=== PATIENT | female | born 1950 | race Caucasian/White ===

== ENCOUNTER → 2019-08-25 13:17 | Outpatient (CLI) | payer OTHER, SELFPAY ==
--- NOTE | ~2019-08-25 | XR_ITS ---
EXAMINATION: XR chest 2V DATE: 08/25/2019 13:42 INDICATION: Tobacco smoker. TECHNIQUE: frontal and lateral views of the chest were obtained. COMPARISON: Chest radiograph dated 12/15/2016 FINDINGS: An acute interstitial lung the anterior right hemidiaphragm. Lungs remain clear with no focal airspac e opacities, pulmonary edema, pleural effusion or pneumothorax. The cardiomediastinal silhouette is n ormal. Moderate thoracic spondylosis. IMPRESSION: 1. No acute cardiopulmonary disease. Reviewed, dictated and finalized at location A. ERY LEADPERSON
== END ==
PROVIDERS: PCP Family Medicine; Visit Provider Family Medicine
DX: Z72.0 Tobacco use (principal)
CPT/HCPCS: 71046

== ENCOUNTER 2020-03-02 16:48 | Outpatient (CLI) | payer OTHER, SELFPAY ==
--- NOTE | ~2020-03-02 | MM_ITS ---
EXAMINATION: MM screening [facility] w abdoul HISTORY: Screening TECHNIQUE: Craniocaudal and mediolateral oblique 3-D tomosynthesis images were obtained and synthetic 2-D images were generated. CAD analysis was submitted and interpreted. COMPARISON: Comparison to multiple prior studies sequentially, with oldest reviewed study dated 01/10. BREAST PARENCHYMAL COMPOSITION: There are scattered areas of fibroglandular density. FINDINGS: There is no evidence of suspicious mass, calcification, or architectural distortion to sugg est malignancy in either breast. There has been no suspicious interval change. IMPRESSION: 1. No mammographic evidence of malignancy. 2. Recommend routine screening mammography in one year. BI-RADS Category 1: Negative Reviewed, dictated and finalized at location A.
== END 2020-03-02 16:49 | disposition home or self-care (01) ==
LOC: ANHIMG 16:52
PROVIDERS: PCP Family Medicine; Visit Provider Family Medicine
DX: Z12.31 Encounter for screening mammogram for malignant neoplasm of breast (principal)
CPT/HCPCS: 77063; 77067

== ENCOUNTER 2021-03-04 08:58 | Outpatient (CLI) | payer OTHER, SELFPAY ==
--- NOTE | ~2021-03-04 | MM_ITS ---
EXAMINATION: MM screening [facility] w abdoul HISTORY: Screening TECHNIQUE: Craniocaudal and mediolateral oblique 3-D tomosynthesis images were obtained and synthetic 2-D images were generated. CAD analysis was submitted and interpreted. COMPARISON: Comparison to multiple prior studies sequentially, with oldest reviewed study dated 01/10. BREAST PARENCHYMAL COMPOSITION: There are scattered areas of fibroglandular density. FINDINGS: There is no evidence of suspicious mass, calcification, or architectural distortion to sugg est malignancy in either breast. There has been no suspicious interval change. IMPRESSION: 1. No mammographic evidence of malignancy. 2. Recommend routine screening mammography in one year. BI-RADS Category 1: Negative Reviewed, dictated and finalized at location A.
== END 2021-03-04 08:59 | disposition home or self-care (01) ==
LOC: ANHIMG 09:01
PROVIDERS: PCP Family Medicine; Visit Provider Family Medicine
DX: Z12.31 Encounter for screening mammogram for malignant neoplasm of breast (principal)
CPT/HCPCS: 77063; 77067

== ENCOUNTER 2022-04-25 10:29 | Outpatient (CLI) | payer OTHER, SELFPAY ==
--- NOTE | ~2022-04-25 | MM_ITS ---
EXAMINATION: MM screening [facility] BI w abdoul HISTORY: Screening mammogram TECHNIQUE: Craniocaudal and mediolateral oblique 3-D tomosynthesis images were obtained and synthetic 2-D images were generated. CAD analysis was submitted and interpreted. COMPARISON: 03/21/2021, 03/02/2020, 01/20/2019, 01/15/2018 BREAST PARENCHYMAL COMPOSITION: There are scattered areas of fibroglandular density. FINDINGS: No suspicious mass, calcification, or architectural distortion are identified in either staci ast to suggest malignancy. There has been no suspicious interval change. IMPRESSION: 1. No mammographic evidence of malignancy. 2. Recommend routine screening mammography in one year. BI-RADS Category 1: Negative Reviewed, dictated and finalized at location A.
== END 2022-04-25 10:30 | disposition home or self-care (01) ==
LOC: ANHIMG 10:29
PROVIDERS: PCP Family Medicine; Visit Provider Family Medicine
DX: Z12.31 Encounter for screening mammogram for malignant neoplasm of breast (principal)
CPT/HCPCS: 77063; 77067

== ENCOUNTER 2023-04-26 16:36 | Outpatient (CLI) | payer OTHER, SELFPAY ==
--- NOTE | ~2023-04-26 | MM_ITS ---
EXAMINATION: MM screening [facility] w abdoul HISTORY: Screening mammogram TECHNIQUE: Craniocaudal and mediolateral oblique 3-D tomosynthesis images were obtained and synthetic 2-D images were generated. CAD analysis was submitted and interpreted. COMPARISON: 04/25/2022, 03/04/2021, 03/02/2020 right lateral screening mammogram examinations BREAST PARENCHYMAL COMPOSITION: There are scattered areas of fibroglandular density. FINDINGS: There is no evidence of suspicious mass, calcification, or architectural distortion to sugg est malignancy in either breast. There has been no suspicious interval change. IMPRESSION: 1. No mammographic evidence of malignancy. 2. Recommend routine screening mammography in one year. BI-RADS Category 1: Negative Reviewed, dictated and finalized at location A.
== END 2023-04-26 16:37 | disposition home or self-care (01) ==
LOC: ANHIMG 16:37
PROVIDERS: PCP Family Medicine; Visit Provider Family Medicine
DX: Z12.31 Encounter for screening mammogram for malignant neoplasm of breast (principal)
CPT/HCPCS: 77063; 77067

== ENCOUNTER 2023-11-14 15:28 | Emergency (ER) | payer OTHER, SELFPAY ==
[2023-11-14 15:48] VITALS: BP 170/77; PULSE 87; RESP 12; TEMP 36.6; O2SAT 99
--- NOTE | 2023-11-14 16:03 | ED.DENTAL ---
HPI - Dental/Oral General Chief complaint: Dental/Oral Stated complaint: left side tooth pain Time Seen by Provider: 11/14/23 15:56 Source: patient, family (Son) and RN notes reviewed Mode of arrival: ambulatory Limitations: no limitations History of Present Illness HPI Narrative: Patient presents today complaining of left lower posterior tooth pain x2 days, worse today. Currently rates her pain 12/10 and took ibuprofen with mild relief. Denies fever, shortness of breath, difficulty swallowing. She has not seen a dentist in over 15 years. Related Data Home Medications Medication Instructions Recorded Confirmed atorvastatin 10 mg tablet 10 mg PO DAILY 11/14/23 11/14/23 lorazepam 1 mg tablet 1 mg PO DAILY 11/14/23 11/14/23 losartan 50 mg tablet 50 mg PO DAILY 11/14/23 11/14/23 Allergies Allergy/AdvReac Type Severity Reaction Status Date / Time ERYTHROMYCINS Allergy Unknown Hives Uncoded 11/14/23 15:40 Azithromycin AdvReac Hives Uncoded 11/14/23 15:57 Review of Systems Review of Systems: CONSTITUTIONAL: Denies body aches, fever, chills, or sweats. EYES: Denies visual changes, redness, or discharge. ENT: Denies rhinorrhea, congestion, sore throat, or otalgia.+ tooth pain CARDIOVASCULAR: Denies chest pain, palpitations, or edema. RESPIRATORY: Denies cough or dyspnea. GASTROINTESTINAL: Denies abdominal pain, nausea, vomiting, or diarrhea. GENITOURINARY: Denies dysuria or hematuria. SKIN: Denies rash, itching, or wounds. MUSCULOSKELETAL: Denies back pain, joint pain, or myalgia. NEUROLOGIC: Denies headache, numbness, tingling, or weakness. PSYCH: Denies depression or anxiety. PMFSH Comments Reviewed Exam Narrative: GENERAL: Well-appearing, well-nourished, and in no acute distress. HEAD: Normocephalic, atraumatic. EYES: EOMI. No redness or drainage. Conjunctivae normal. ENT: Mucous membranes pink and moist. Gross dental decay. Tooth 18. Is broken off at the gumline and is brown in color. No facial swelling noted. No obvious periapical abscess. No trismus. NECK: Normal AROM. CHEST: No respiratory distress. EXTREMITIES: Normal range of motion. No edema. SKIN: Warm, dry, no rash. Capillary refill normal. Normal skin turgor. NEURO: No focal deficits. Alert and oriented x3. Gait steady. PSYCH: Normal affect. No signs of depression or anxiety. Course Course Level of Care: Express Care Visit Vital Signs Vital signs: Vital Signs Temperature 98 F 11/14/23 15:48 Pulse Rate 87 11/14/23 15:48 Respiratory Rate 12 11/14/23 15:48 Blood Pressure 170/77 H 11/14/23 15:48 Pulse Oximetry 99 11/14/23 15:48 Oxygen Delivery Room Air 11/14/23 15:48 Temperature 98 F 11/14/23 15:48 Pulse Rate 87 11/14/23 15:48 Respiratory Rate 12 11/14/23 15:48 Blood Pressure 170/77 H 11/14/23 15:48 Pulse Oximetry 99 11/14/23 15:48 Oxygen Delivery Room Air 11/14/23 15:48 Reviewed MDM - Dental/Oral MDM Narrative Medical decision making narrative: Patient will be started on amoxicillin and has been instructed to follow-up with a dentist for further evaluation. Anticipatory guidance given. Differential Diagnosis Differential diagnosis: Likely gingival abscess, dental caries, toothache, dental abscess and fracture of tooth Critical Care Time Critical Care Time Critical Care Time: No Discharge Plan Discharge Clinical Impression: Dental caries Patient Disposition: Home, Self-Care Condition: Stable Instructions: Antibiotic Form, Dental Abscess (ED) Additional Instructions: Please take the amoxicillin as prescribed until gone. Take Tylenol or ibuprofen for pain. Follow-up with a dentist for further evaluation and treatment. Your blood pressure was elevated above 120/80 today at Urgent Care. This puts you above the threshold for follow up. Please schedule a followup visit with your personal physician as soon as possible, for further evaluation and treatment. Even
== END 2023-11-14 16:15 | disposition home or self-care (01) ==
PROVIDERS: Emergency Provider Nurse Practitioner; PCP Family Medicine
DX: K02.9 Dental caries, unspecified (principal)
CPT/HCPCS: 99213; G0463

== ENCOUNTER 2024-03-01 11:47 | Emergency (ER) | payer OTHER, SELFPAY ==
[2024-03-01 12:00] VITALS: BP 178/94; PULSE 90; RESP 20; TEMP 36.8; O2SAT 98
--- NOTE | 2024-03-01 12:02 | ED.URI ---
HPI - URI/Sore Throat General Chief Complaint: Dental/Oral Stated Complaint: Dental Pain Time Seen by Provider: 03/01/24 12:08 Source: patient, RN notes reviewed and old records reviewed Mode of arrival: ambulatory Limitations: no limitations History of Present Illness HPI Narrative: Patient presents with complaints of left lower tooth pain. She reports that she had an infection surrounding same tooth last October. States that she has not followed up with a dentist because she is frightened of them. She reports that symptoms began yesterday, she was unable to present to urgent care yesterday because she had to take her cat to the drum [place]. She has been using a topical dental agent and Tylenol for her symptoms. Poor relief. Elevated blood pressure was discussed, she states that she took her medications as prescribed this morning. Denies any chest pain, dizziness, shortness of breath. Voices no other concerns at this time. No fever, chills, sweats. Denies any injury or trauma Related Data Home Medications Medication Instructions Recorded Confirmed atorvastatin 10 mg tablet 10 mg PO DAILY 03/01/24 03/01/24 buspirone 5 mg tablet 5 mg PO DAILY 03/01/24 03/01/24 losartan 50 mg tablet 50 mg PO DAILY 03/01/24 03/01/24 Allergies Allergy/AdvReac Type Severity Reaction Status Date / Time ERYTHROMYCINS Allergy Unknown Hives Uncoded 03/01/24 11:50 Azithromycin AdvReac Hives Uncoded 03/01/24 11:50 Review of Systems Review of Systems: All systems reviewed & are unremarkable except as noted in HPI and below Constitutional: Constitutional: Reports no additional constitutional complaints ENT: Reports system reviewed and no additional complaints, except as documented and Reports dental pain Cardiovascular: Cardiovascular: Reports no additional cardiovascular complaints Respiratory: Respiratory: Reports no additional respiratory complaints Gastrointestinal: Gastrointestinal: Reports no additional gastrointestinal complaints PMFSH Comments At the time of my signature, I reviewed and agree with the nursing past medical, surgical, social, and family history. There is no relevant family history pertinent to the patient complaint. Exam Const: General: cooperative, no acute distress, alert and awake Orientation/consciousness: oriented to person, oriented to place and oriented to time HENMT: Head: normal to inspection Teeth and gingiva: abnormal tooth and associated gingiva (Left lower, scant drainage present) Resp: Effort & Inspection: normal respiratory effort and able to speak in complete sentences Auscultation: clear to auscultation bilaterally, no crackles, no rales, no rhonchi and no wheezes Cardio: Palpation: normal PMI Rate: regular rate Rhythm: regular rhythm Heart sounds: S1 normal heart sound present and S2 normal heart sound present Neuro: General: oriented to person, oriented to place and oriented to time Cranial nerves: Yes CN's II-XII intact bilaterally Psych: Appearance: grossly normal Thought process: Normal thought process present Insight: Good insight present (Psych) Judgement: Good judgement present (Psych) Course Course Level of Care: Express Care Visit Vital Signs Vital signs: Vital Signs Temperature 98.2 F 03/01/24 12:00 Pulse Rate 90 03/01/24 12:00 Respiratory Rate 20 03/01/24 12:00 Blood Pressure 178/94 H 03/01/24 12:00 Pulse Oximetry 98 03/01/24 12:00 Oxygen Delivery Room Air 03/01/24 12:00 Temperature 98.2 F 03/01/24 12:00 Pulse Rate 90 03/01/24 12:00 Respiratory Rate 20 03/01/24 12:00 Blood Pressure 178/94 H 03/01/24 12:00 Pulse Oximetry 98 03/01/24 12:00 Oxygen Delivery Room Air 03/01/24 12:00 Reviewed MDM - URI/Sore Throat MDM Narrative Medical decision making narrative: Patient with obvious dental infection, scant amount of drainage. No facial swelling, no neck swelling. Afebrile. Elevated blood pressure is noted and discussed wi
== END 2024-03-01 12:20 | disposition home or self-care (01) ==
PROVIDERS: Emergency Provider Nurse Practitioner Family; PCP Family Medicine
DX: K04.7 Periapical abscess without sinus (principal); E78.00 Pure hypercholesterolemia, unspecified; I10 Essential (primary) hypertension; F41.9 Anxiety disorder, unspecified
CPT/HCPCS: 99213; G0463

== ENCOUNTER 2024-05-09 15:11 | Outpatient (CLI) | payer OTHER, SELFPAY ==
--- NOTE | ~2024-05-09 | MM_ITS ---
EXAMINATION: MM screening [facility] w abdoul HISTORY: Screening TECHNIQUE: Craniocaudal and mediolateral oblique 3-D tomosynthesis images were obtained and synthetic 2-D images were generated. CAD analysis was submitted and interpreted. COMPARISON: Comparison to multiple prior studies sequentially, with oldest reviewed study dated 12/2017. BREAST PARENCHYMAL COMPOSITION: Not dense: There are scattered areas of fibroglandular density. FINDINGS: There is no evidence of suspicious mass, calcification, or architectural distortion to sugg est malignancy in either breast. There has been no suspicious interval change. IMPRESSION: 1. No mammographic evidence of malignancy. 2. Recommend routine screening mammography in one year. BI-RADS Category 1: Negative Reviewed, dictated and finalized at location B. AURANT HOURLY MANAGER
== END 2024-05-09 15:12 | disposition home or self-care (01) ==
LOC: ANHIMG 15:14
PROVIDERS: PCP Family Medicine; Visit Provider Family Medicine
DX: Z12.31 Encounter for screening mammogram for malignant neoplasm of breast (principal)
CPT/HCPCS: 77063; 77067

== ENCOUNTER 2024-06-30 11:11 | Emergency (ER) | payer OTHER, SELFPAY ==
[2024-06-30 11:19] VITALS: BP 188/94; PULSE 95; RESP 16; TEMP 36.1; O2SAT 98
--- NOTE | 2024-06-30 12:17 | ED.URI ---
HPI - URI/Sore Throat General Chief Complaint: Upper Respiratory Infection Stated Complaint: Sinus/Mouth Pain Time Seen by Provider: 06/30/24 12:18 Source: patient, RN notes reviewed and old records reviewed Mode of arrival: ambulatory Limitations: no limitations History of Present Illness HPI Narrative: Patient presents with complaints of 5 days of sinus pain and tenderness. She reports that a couple of weeks before she actually developed pain she did have some nasal drainage and runny nose. She reports now mucous has thickened, she has copious postnasal drainage causing a sore throat. She reports occasional cough. She is more tired than normal. Blood pressure is noted to be elevated. She reports that she forgot to take her medication at the proper time this morning, took it upon arrival here. She denies any dizziness, chest pain, shortness of breath. No visual disturbances Related Data Home Medications ?Medication ?Instructions ?Recorded ?Confirmed ?Last Taken ?Type atorvastatin 10 mg tablet 10 mg PO DAILY 03/01/24 03/01/24 Unknown History buspirone 5 mg tablet 5 mg PO DAILY 03/01/24 03/01/24 Unknown History losartan 50 mg tablet 50 mg PO DAILY 03/01/24 03/01/24 Unknown History lorazepam 1 mg tablet mg 06/30/24 Unknown History Allergies Allergy/AdvReac Type Severity Reaction Status Date / Time ERYTHROMYCINS Allergy Unknown Hives Uncoded 06/30/24 11:30 Azithromycin AdvReac Hives Uncoded 06/30/24 11:30 Review of Systems Review of Systems: All systems reviewed & are unremarkable except as noted in HPI and below Constitutional: Constitutional: Reports no additional constitutional complaints ENT: Reports system reviewed and no additional complaints, except as documented, Reports nasal congestion, Reports nasal discharge, Reports nasal obstruction, Reports sinus pain, Reports sinus pressure and Reports sore throat Cardiovascular: Cardiovascular: Reports no additional cardiovascular complaints Respiratory: Respiratory: Reports no additional respiratory complaints and Reports cough Gastrointestinal: Gastrointestinal: Reports no additional gastrointestinal complaints PMFSH Comments At the time of my signature, I reviewed and agree with the nursing past medical, surgical, social, and family history. There is no relevant family history pertinent to the patient complaint. Exam Const: General: cooperative, no acute distress, alert and awake Orientation/consciousness: oriented to person, oriented to place and oriented to time HENMT: Head: normal to inspection Ears: TM's normal bilaterally Face/Nose/Sinus: sinus tenderness Mouth: Yes moist mucous membranes Throat: posterior oropharynx abnormal erythema Resp: Effort & Inspection: normal respiratory effort and able to speak in complete sentences Auscultation: clear to auscultation bilaterally, no crackles, no rales, no rhonchi and no wheezes Cardio: Palpation: normal PMI Rate: regular rate Rhythm: regular rhythm Heart sounds: S1 normal heart sound present and S2 normal heart sound present Neuro: General: oriented to person, oriented to place and oriented to time Cranial nerves: Yes CN's II-XII intact bilaterally Psych: Appearance: grossly normal Thought process: Normal thought process present Insight: Good insight present (Psych) Judgement: Good judgement present (Psych) Course Course Level of Care: Express Care Visit Vital Signs Vital signs: Vital Signs Temperature 97.0 F L 06/30/24 11:19 Pulse Rate 95 06/30/24 11:19 Respiratory Rate 16 06/30/24 11:19 Blood Pressure 188/94 H 06/30/24 11:19 Pulse Oximetry 98 06/30/24 11:19 Oxygen Delivery Room Air 06/30/24 11:19 Temperature 97.0 F L 06/30/24 11:19 Pulse Rate 95 06/30/24 11:19 Respiratory Rate 16 06/30/24 11:19 Blood Pressure 188/94 H 06/30/24 11:19 Pulse Oximetry 98 06/30/24 11:19 Oxygen Delivery Room Air 06/30/24 11:19 Reviewed MDM - URI/Sore Throat MDM Narrative Medical decision making narrative: History and exam consistent with sinusitis. Patient with right-sided maxillary tenderness. Start Augmentin. Patient counseled to take all medications, including antihypertensives, at correct times. She is advised to follow with primary care provider. Emergency department for new or worse symptoms. Discharge instructions reviewed with patient, as well as provided in writing per nursing staff. The instructions also include specific and strict return/GO TO THE ER as well as f/u information. All questions have been answered, and the patient deny any further questions with discharge and discharge plan. Some parts of this dictation were generated by voice recognition software and may contain typographical and/or grammatical inaccuracies. Differential Diagnosis Differential diagnosis: Likely upper respiratory infection, otitis media, viral infection, influenza and pharyngitis Medical Records Attestation: I reviewed the patient's medical records. Discharge Plan Discharge Clinical Impression: Sinusitis Qualifiers: Sinusitis location: maxillary Chronicity: acute Recurrence: not specified as recurrent Qualified Code(s): J01.00 - Acute maxillary sinusitis, unspecified Patient Disposition: Home, Self-Care Condition: Stable Instructions: Antibiotic Form, Sinusitis (ED) Additional Instructions: Plenty of rest and fluids, take medications as prescribed. Follow-up with primary care provider. Emergency department for new or worse symptoms. Blood pressure is very elevated today. Please be sure you are taking your medications at the appropriate times Patient Language: Bur[place]ian Prescriptions: New amoxicillin-pot clavulanate 875-125 mg tablet 1 tablet PO Q12H Qty: 20 0RF No Action buspirone 5 mg tablet 5 mg PO DAILY losartan 50 mg tablet 50 mg PO DAILY atorvastatin 10 mg tablet 10 mg PO DAILY lorazepam 1 mg tablet Follow-up/Referrals: Nathan,MD Madonna [Primary Care Provider] - 2 Weeks Time of Disposition: 12:28
== END 2024-06-30 12:35 | disposition home or self-care (01) ==
PROVIDERS: Emergency Provider Nurse Practitioner Family; PCP Family Medicine
DX: J01.00 Acute maxillary sinusitis, unspecified (principal); I10 Essential (primary) hypertension; E78.00 Pure hypercholesterolemia, unspecified; J44.9 Chronic obstructive pulmonary disease, unspecified; F41.9 Anxiety disorder, unspecified; F32.A Depression, unspecified
CPT/HCPCS: 99213; G0463

== ENCOUNTER 2025-05-11 14:26 | Outpatient (CLI) | payer OTHER, SELFPAY ==
--- NOTE | ~2025-05-11 | MM_ITS ---
EXAMINATION: MM screening kendal BI w abdoul HISTORY: Screening TECHNIQUE: Craniocaudal and mediolateral oblique 3-D tomosynthesis images were obtained and synthetic 2-D images were generated. CAD analysis was submitted and interpreted. COMPARISON: Comparison to multiple prior studies sequentially, with oldest reviewed study dated 01/20/2019. BREAST PARENCHYMAL COMPOSITION: There are scattered areas of fibroglandular density. FINDINGS: There is no evidence of suspicious mass, calcification, or architectural distortion to suggest malignancy in either breast. There has been no suspicious interval change. IMPRESSION: 1. No mammographic evidence of malignancy. 2. Recommend routine screening mammography in one year. BI-RADS Category 1: Negative Reviewed, dictated and finalized at location [facility]
--- OUTSIDE RECORDS SUMMARY | 2025-05-11 14:30 | XMS_ITS | Clinical Summary ---
Author Organization [address] Address [address] [address] Care Team Providers Care Superannuation Clerk Name Role Phone Guicho Brooks MD Primary Care Provider [phone] Allergies Active Allergy Reactions Criticality Noted Date Comments Cefprozil Rash Medium 07/27/2020 Erythromycin Rash Medium 07/27/2020 Azithromycin Rash Medium 07/27/2020 Medications calcium carbonate/vitamin D3 (CALCIUM 500 + D ORAL) Take by mouth Active cholecalciferol (VITAMIN D-3) 400 unit capsule daily Active ascorbic acid (VITAMIN C) 500 mg tablet,chewable Acti ve vitamin B complex capsule Take 1 capsule by mouth daily Active valsartan-hydrochlorothi azide (DIOVAN-HCT) 320-12.5 mg per tablet Take 1 tablet by mouth daily 90 tablet 1 04/09/20 25 026 Active atorvastatin (LIPITOR) 10 mg tabletIndications:Pure hypercholesterolemia Take 1 tablet (10 mg total) by mouth nightly 90 tablet 1 04/09/20 25 Active LORazepam (ATIVAN) 0.5 mg tablet Take 1 tablet (0.5 mg total) by mouth daily as needed for anxiety 30 tablet 2 04/09/20 25 Active Active Problems Problem Noted Date Diagnosed Date Degenerative disc disease, lumbar 04/09/2025 Assessment & Plan (04/09/2025 11:06 AM CDT): Patient takes Tylenol as needed with good relief. Screening for lung cancer 10/09/2024 Assessment & Plan (04/09/2025 7:16 AM CDT): Lung cancer screening in April 2024 was benign Assessment & Plan (01/08/2025 7:16 AM CDT): Lung cancer screening in April 2024 was benign Assessment & Plan (10/09/2024 11:26 AM CDT): Lung cancer screening in April 2024 was benign Centrilobular emphysema 01/15/2024 Assessment & Plan (04/09/2025 7:16 AM CDT): Asymptomatic and stable without medications Assessment & Plan (01/08/2025 7:15 AM CDT): Asymptomatic and stable without medications Assessment & Plan (10/09/2024 11:24 AM CDT): Asymptomatic and stable without medications Assessment & Plan (01/15/2024 2:05 PM CDT): Chronic, stable Managed by pulmonary- currently off medication Diarrhea 01/15/2024 Assessment & Plan (01/15/2024 2:13 PM CDT): Acute/recurrent Encouraged to keep track of her symptoms, and what is happen around the episodes-? Stress vs food vs other-? IBS-D vs other Will give a handout on FODMAPS Update me if her symptoms change or worsen IFG (impaired fasting glucose) 01/15/2024 Overview (01/15/2024): Chronic, stable Continue healthy diet changes Nonintractable episodic headache 11/28/2023 Assessment & Plan (01/15/2024 2:09 PM CDT): Acute improved Continue to monitor symptoms Update me if they change or worsen Assessment & Plan (11/28/2023 9:43 AM CDT): Acute, new Patient states it is not a headache, but pressure CT scan from July We discussed repeat imaging, declined for now Keep track of her headaches Keep track of her blood pressure. I am concerned given her blood pressure has been under control here that it may be running well at home minus episodes like the dentist She has been under more stress, and we will adjust her medication for depression and anxiety Update me if her symptoms do not improve or worsen Call for questions Primary hypertension 08/01/2023 Assessment & Plan (04/09/2025 7:16 AM CDT): Continue current medications. Discussed low-salt diet. Discussed exercise on regular basis. Will continue to monitor Assessment & Plan (01/08/2025 7:16 AM CDT): Continue current medications. Discussed low-salt diet. Discussed exercise on regular basis. Will continue to monitor Assessment & Plan (10/09/2024 11:25 AM CDT): Blood pressure is high. We will stop losartan. I will start her on valsartan-hydrochlorothiazide 320-12.5 mg daily. Discussed the importance of low-salt diet. Advised to check her blood pressure on regular basis. Will evaluate her again Assessment & Plan (01/15/2024 1:49 PM CDT): Chronic, stable Continue losartan Continue healthy habits for her blood pressure Assessment & Plan (11/28/2023 9:41 AM CDT): Chronic, possible variation but improved I am concerned her elevation at the dentist could have been related to anxiety Will treat anxiety with BuSpar Continue losartan at current dose Follow up in one week for a blood pressure recheck Call for questions or concerns Assessment & Plan (08/01/2023 10:37 AM SUPERVISOR CONTINGENTS): Chronic- improved, but not at goal Will increase losartan to 50 mg Recheck BMP in 2 weeks Nurse visit in 2 weeks Continue to work on DASH diet/healthy changes Continue to work on quitting smoking Update me in 2 weeks Chronic kidney disease, stage 2 (mild) Assessment & Plan (04/09/2025 7:16 AM CDT): Mild chronic kidney disease secondary to hypertension. Discussed the importance of keeping blood pressure under control. Consume at least 64 oz of fluid daily. Avoid NSAIDs Assessment & Plan (01/08/2025 7:15 AM CDT): Mild chronic kidney disease secondary to hypertension. Discussed the importance of keeping blood pressure under control. Consume at least 64 oz of fluid daily. Avoid NSAIDs Assessment & Plan (10/09/2024 11:24 AM CDT): Mild chronic kidney disease secondary to hypertension. Discussed the importance of keeping blood pressure under control. Consume at least 64 oz of fluid daily. Avoid NSAIDs Assessment & Plan (01/15/2024 1:47 PM CDT): Chronic, stable Continue losartan Continue to monitor her renal function Encounter for Medicare annual wellness exam 12/01 Overview (01/15/2024): Encouraged healthy diet and activity Please look into a power of county attorney or living will Health Maintenance: Last mammogram: 04/22- WNL-ordered Last DEXA: 01/21- WN Last Lung Cancer screenin/23 Last colon cancer screening: cologuard 01/20 Negative Last Tdap: 10/2021 Last pneumonia: encouraged Last Shingrix: encouraged Last Flu: encouraged Last COVID: encouraged Assessment & Plan (01/15/2024 1:56 PM CDT): Encouraged healthy diet and activity Please look into a power of county attorney or living will Health Maintenance: Last mammogram: 04/22- WNL-ordered Last DEXA: 01/21- WNL Last Lung Cancer screenin/23 Last colon cancer screening: cologuard 01/20 Negative Last Tdap: 10/2021 Last pneumonia: encouraged Last Shingrix: encouraged Last Flu: encouraged Last COVID: encouraged Assessment & Plan (01/04/2023 2:14 PM CDT): Encouraged healthy diet and activity Please look into a power of county attorney or living will Health Maintenance: Last mammogram: 04/22- WNL Last DEXA: 10/2020- low bone mass-ordered Last Lung Cancer screening: encouraged Last colon cancer screening: cologuard 01/20 Negative Last Tdap: 10/2021 Last pneumonia: encouraged Last Shingrix: encouraged Last Flu: encouraged Last COVID: encouraged Assessment & Plan (12/29/2021 1:52 PM CDT): Encouraged healthy diet and activity Please look into a power of county attorney or living will Health Maintenance: Last mammogram: ordered Last DEXA: 10/2020- low bone mass Last colonoscopy/cologuard: cologuard ordered- check with insurance Last Tdap: 10/2021 Last pneumonia/Prevnar: encouraged Last Shingrix: encouraged Last Flu: encouraged Last COVID: encouraged Assessment & Plan (12/28/2020 1:45 PM CDT): Encouraged healthy diet and activity Please look into a power of county attorney or living will Wear sun screen, seat belts Health Maintenance: Last mammogram: ordered Last DEXA: 10/2020- low bone mass Last colonoscopy/cologuard: cologuard 06/2020 Last Tdap: check with insurance Last pneumonia/Prevnar: encouraged Last Shingrix: encouraged Last Flu: encouraged Last COVID: encouraged Pure hypercholesterolemia 12/28/2020 Assessment & Plan (04/09/2025 7:16 AM CDT): Continue Lipitor and low-fat diet. Assessment & Plan (01/08/2025 7:16 AM CDT): Continue Lipitor and low-fat diet. Assessment & Plan (10/09/2024 11:26 AM CDT): Continue Lipitor and low-fat diet. Assessment & Plan (01/15/2024 1:49 PM CDT): Chronic, stable Continue Lipitor Assessment & Plan (07/17/2023 3:28 PM SUPERVISOR [employer]ING[employer]): Chronic, stable Continue lipitor Assessment & Plan (01/04/2023 2:16 PM CDT): Chronic, stable Continue lipitor Assessment & Plan (12/29/2021 2:06 PM CDT): Will check labs Continue current regimen Assessment & Plan (04/27/2021 4:59 PM CDT): Improved Continue Lipitor Continue to work on healthy lifestyle changes Call for questions or concerns Assessment & Plan (01/25/2021 2:47 PM CDT): CVD score 16.8% We discussed medication- possible side effects Will start lipitor 10 mg nightly Recheck labs in 6-8 weeks Update me with any changes Assessment & Plan (12/28/2020 1:54 PM CDT): CVD score 16.8% Reviewed risk of heart disease, and that she is at a higher risk given her smoking Encouraged to consider treatment Low bone mass 12/28/2020 Assessment & Plan (01/15/2024 2:06 PM CDT): Chronic, improved Continue calcium and vitamin-D Assessment & Plan (01/04/2023 2:16 PM CDT): Chronic Continue calcium, vitamin d Assessment & Plan (12/29/2021 2:02 PM CDT): Continue calcium, vitamin d Assessment & Plan (12/28/2020 1:53 PM CDT): calcium supplementation of 7464-6562 mg daily- over 1500 mg can be detrimental vitamin d of 2607-9720 units daily can increase bone mass if smoking-quit if drinking- drink no more than 2 drinks a day limit caffiene to less martini 250 mg daily consider weight bearing cardio including walking ( exercises like cycling and swimming aren't as helpful for the bones, but still good for heart health) resistance training 2-3 days a week. Start light, and adjust weight as you get stronger (be cautious- no injuries!) flexibility exercises 5-7 days a week- this helps prevent falls Overweight (BMI 25.0-29.9) 12/28/2020 Assessment & Plan (01/15/2024 1:48 PM CDT): Chronic, stable BMI Follow-up includes: nutrition counseling. Assessment & Plan (01/04/2023 2:16 PM CDT): BMI Follow-up includes: nutrition counseling. Assessment & Plan (12/29/2021 2:04 PM CDT): BMI Follow-up includes: nutrition counseling. Assessment & Plan (12/28/2020 2:00 PM CDT): BMI Follow-up includes: nutrition counseling. Bilateral hearing loss 12/28/2020 Assessment & Plan (10/09/2024 11:24 AM CDT): Patient has hearing loss. I offered her to have hearing test and she declined Assessment & Plan (01/15/2024 1:47 PM CDT): Chronic, persistent Encouraged setting up an appointment with audiology, declined for now Assessment & Plan (01/04/2023 2:15 PM CDT): Chronic Encouraged seeing an beef ribber- btu she will monitor for now Assessment & Plan (12/29/2021 1:58 PM CDT): Reviewed seeing an beef ribber- she will consider Assessment & Plan (12/28/2020 2:49 PM CDT): We discussed ent referral- declined Consider referral Mild episode of recurrent major depressive disor uday 10/19/2020 Assessment & Plan (04/09/2025 7:16 AM CDT): Patient denied depression. No suicidal ideations. She is not on medications. Assessment & Plan (01/08/2025 7:16 AM CDT): Patient denied depression. No suicidal ideations. She is not on medications. Assessment & Plan (10/09/2024 11:25 AM CDT): Patient denied depression. No suicidal ideations. She is not on medications. Assessment & Plan (01/15/2024 2:08 PM CDT): Chronic, persistent Advised to start buspar- can start once daily for one week. If she does well, we can increase her buspar to BID Continue healthy habits for her mood Call for qestions Assessment & Plan (11/28/2023 9:26 AM CDT): Chronic, worse since her last evaluation Will start buspar Continue healthy changes for her mood Follow up at next scheduled visit Assessment & Plan (07/17/2023 3:27 PM SUPERVISOR [employer]ING[employer]): Chronic, stable Continue supportive care for her mood Call if s/sx worsen or change Assessment & Plan (01/04/2023 2:17 PM CDT): Chronic, improved Continue healthy changes for her mood Assessment & Plan (12/29/2021 2:04 PM CDT): Continue to follow with her psychologist Consider medication if symptoms worsen or change callf or questions Assessment & Plan (05/24/2021 3:53 PM SUPERVISOR [employer]ING[employer]): Improved Continue healthy changes to boost mood Call for questions or concerns Assessment & Plan (04/27/2021 4:59 PM CDT): Encouraged to start her Lexapro Reviewed that it is safer for her long-term the knee Ativan Encouraged to work on healthy changes for her mood Update me in 4 weeks Call for questions or concerns Assessment & Plan (12/28/2020 2:11 PM CDT): Patient reiterated no suicidal thoughts at this time; lexapro 5 mg daily take medication as directed discussed side effects of medication with patient encouraged healthy diet and exercise encouraged patient to see a counselor use support structures you have in place If mood worsens or changes, please contact the office Anything emergent, to the er Assessment & Plan (10/19/2020 1:54 PM CDT): With life stressors We discussed lexapro- I would like her to consider We reviewed its safety, as well as it can help her anxiety/depression, and help her tackle her stress Encouraged to use her support structures Update me if she would like to try it Call for questions or concerns Anxiety 07/27/2020 Assessment & Plan (04/09/2025 7:15 AM CDT): Continue lorazepam once daily prn. Patient has no side effects with the medication. Assessment & Plan (01/08/2025 11:23 AM CDT): Continue lorazepam once daily prn. Patient has no side effects with the medication. Assessment & Plan (10/09/2024 11:24 AM CDT): Patient takes lorazepam and BuSpar. Patient said that she takes lorazepam 0.5 mg daily and not 1 mg 3 times daily. Patient said that her insurance told her that they will not cover the medication. I told her that I can switch her to non habit- forming medication to helps with her symptoms. Patient declined that and she said that she has good relief with lorazepam. We will refill the medication for her at 0.5 mg daily p.r.n.. Patient understands that it may not be covered by her insurance as she was told by her insurance Assessment & Plan (01/15/2024 2:00 PM CDT): Chronic, persistent/not well controlled Encouraged start buspar once daily for a week, then increasing it to twice Continue Ativan as needed Encouraged healthy habits for her mood Update me if it worsens or changes Update me in one month Assessment & Plan (11/28/2023 9:25 AM CDT): Chronic, persistent On ativan as needed I am concerned about her mood affecting her blood pressure Will start buspar Continue ativan as needed Further guidance once we have the results Assessment & Plan (07/17/2023 1:56 PM SUPERVISOR [employer]ING[employer]): Chronic, stable We discussed a daily medication for her mood like an SSRI- declined Discussed that ativan is a controlled substance and it is not to be shared, lost and under no circumstances will be prescribed early. It should be taken exactly as prescribed. Discussed potential side effects, and urged patient to call if she experiences any. Updated to know that we need to UDS yearly Follow up in 6 months Assessment & Plan (01/04/2023 2:15 PM CDT): Chronic, stable Continue ativan as needed Reviewed keeping the medication drake Continue healthy changes Assessment & Plan (12/29/2021 1:57 PM CDT): Fair Continue to ativan as needed Controlled substance agreement completed Call for questions or concerns Assessment & Plan (05/24/2021 3:52 PM SUPERVISOR CONTING[employer]): Was unable to tolerate the lexapro Continue ativan as needed Continue healthy changes for her mood Call for questions or concerns Assessment & Plan (04/27/2021 4:59 PM CDT): Encouraged to take her lexapro daily She can use lorazepam as needed Encouraged to work on healthy changes for her mood Update me in 4 weeks Call if she has any issues with the medication Call for questions or concerns Assessment & Plan (01/25/2021 2:51 PM CDT): Onesimo galvan Encouraged to consider lexapro daily Work on healthy changes for her mood Update me in 1 month Call for questions or concerns Assessment & Plan (12/28/2020 1:50 PM CDT): Continue lorazepam as needed Will add lexapro to her daily regimen Call for questions or concerns Assessment & Plan (10/19/2020 1:47 PM CDT): We reviewed her GAD7 I would like her to start lexapro 5 mg daily Continue lorazepam as needed Work on healthy changes to improve her mood Follow up in a couple weeks Call for questions or concerns Assessment & Plan (07/27/2020 1:49 PM SUPERVISOR CONTINGENTS): Doing well on current regimen Continue current medication Continue healthy changes to boost mood- exercise, healthy diet, using support structures that are in place, and good sleep habits If mood worsens or changes, please contact the office Anything emergent, to the er Call for questions or concerns Allergic rhinitis 07/27/2020 Assessment & Plan (01/15/2024 1:46 PM CDT): Chronic, stable Continue OTC medications as needed Call if symptoms change or worsen Assessment & Plan (01/04/2023 2:15 PM CDT): Chronic, stable Continue current regimen Assessment & Plan (12/29/2021 1:57 PM CDT): Stable Continue to monito Assessment & Plan (12/28/2020 1:48 PM CDT): Continue to monitor her symptoms Call for questions or concerns Assessment & Plan (07/27/2020 2:21 PM SUPERVISOR CONTING[employer]): We discussed medication- she declined at this time Will review at her follow up Low back pain 07/27/2020 Assessment & Plan (01/15/2024 1:47 PM CDT): Chronic, stable Continue supportive care Assessment & Plan (01/04/2023 2:16 PM CDT): Chronic, stable Continue supportive care Assessment & Plan (12/29/2021 2:02 PM CDT): Continue supportive care Assessment & Plan (07/27/2020 2:21 PM SUPERVISOR [employer]ING[employer]): Will try to get prior work up Pain is improved Consider repeat imaging Consider physical therapy Call for questions or concerns Cigarette nicotine dependence without complicati on 07/27/2020 Assessment & Plan (04/09/2025 7:16 AM CDT): Patient smokes 1-2 packs of cigarettes daily for many years. We discussed the importance of complete cessation. Patient understands risks. We discussed different methods to help her quit smoking. Patient is not interested Assessment & Plan (01/08/2025 7:16 AM CDT): Patient smokes 1-2 packs of cigarettes daily for many years. We discussed the importance of complete cessation. Patient understands risks. We discussed different methods to help her quit smoking. Patient is not interested Assessment & Plan (10/09/2024 11:25 AM CDT): Patient smokes 1-2 packs of cigarettes daily for many years. We discussed the importance of complete cessation. Patient understands risks. We discussed different methods to help her quit smoking. Patient is not interested Assessment & Plan (01/15/2024 1:47 PM CDT): Chronic, persistent Encouraged cutting down as she is able to Assessment & Plan (08/01/2023 10:39 AM SUPERVISOR CONTING[employer]): Chronic, stable Encouraged cutting down as she is able to Assessment & Plan (07/17/2023 3:27 PM SUPERVISOR [employer]ING[employer]): Chronic, stable Encouraged to continue to cut down Assessment & Plan (01/04/2023 2:17 PM CDT): Encouraged cessation Assessment & Plan (12/29/2021 2:06 PM CDT): Encouraged cessation Assessment & Plan (05/24/2021 3:53 PM SUPERVISOR [employer]ING[employer]): Encouraged cessation Assessment & Plan (12/28/2020 1:53 PM CDT): Encouraged cessation Assessment & Plan (10/19/2020 1:43 PM CDT): Encouraged cessation Assessment & Plan (07/27/2020 2:24 PM SUPERVISOR CONTING[employer]): Encouraged cessation Resolved Problems Problem Noted Date Diagnosed Date Resolved Date Pain, dental 06/09/2021 01/04/2023 Assessment & Plan (06/09/2021 8:18 AM SUPERVISOR CONTINGENTS): Acute-started on amoxicillin 500 mg TID x 7 days. Recommended finding a new dentist. Advised follow-up with PCP if symptoms don't improve, worsen, or new symptoms develop before dental appointment. Transient elevated blood pressure 07/27/2020 01/04/2023 Assessment & Plan (12/29/2021 2:06 PM CDT): Normal today Continue to monitor Assessment & Plan (12/28/2020 2:48 PM CDT): Recheck at next visit Assessment & Plan (10/19/2020 1:43 PM CDT): Lab orders printed Work on cutting down smoking Work on a lower salt diet Recheck at next visit Call for questions or concerns Assessment & Plan (07/27/2020 1:51 PM SUPERVISOR CONTINGENTS): At goal today Continue to monitor Call for questions or concerns Encounters Date Type Department Care Team Description 04/09/2025 10:00 AM CDT Office Visit [facility] [address] [place] [address] [place] [phone] Guicho Brooks MD Centrilobular emphysema (Primary Dx); Chronic kidney disease, stage 2 (mild); Cigarette nicotine dependence without complication; Mild episode of recurrent major depressive disorder; Primary hypertension; Pure hypercholesterolemia; Screening for lung cancer; Anxiety; BMI 26.0-26.9,adult; Personal history of nicotine dependence; Degeneration of intervertebral disc of lumbar region with discogenic back pain 02/20/2025 Results Follow-Up [facility] Internal Medicine [address] [place] [address] [place] [phone] Guicho Brooks MD Dexa Axial Skeleton Bone Density 1 or 2 Site 02/19/2025 2:22 PM CDT - 02/19/2025 11:59 PM CDT Hospital Encounter [facility] Bldg 1 [facility] [address] [address] Postmenopausal Discharge Disposition: Discharge to home or self care from Last 3 Months Immunizations Immunization Administration Dates Next Due Influenza, Unspecified 04/09/2025(Deferr ed: Patient decision),04/05/2024(Deferred: Patient decision),07/17/2023(Deferred: Patient Refused),04/01/2023(Deferred: Patient Refused),04/01/2023(Deferred: Patient Refused),04/01/2023(Deferred: Patient Refused),04/01/2022(Deferred: Patient Refused),04/01/2022(Deferred: Patient Refused),04/01/2022(Deferred: Patient Refused),04/01/2022(Deferred: Patient Refused),05/24/2021(Deferred: Patient Refused),04/01/2021(Deferred: Patient Refused),04/01/2021(Deferred: Patient Refused),04/01/2020(Deferred: Patient Refused),04/01/2020(Deferred: Patient Refused),04/01/2020(Deferred: Patient Refused) Tdap 11/12/2021 Surgical History Surgery Date Site/Laterality Comments SECTION 1979,1984 DILATION AND CURETTAGE OF UTERUS 07/02/1988 - 07/01/1989 WISDOM TOOTH EXTRACTION 07/02/1988 - 07/01/1989 Medical History Medical History Date Comments Mitral valve prolapse Anxiety Hypertension Sinus infection Varicella DDD (degenerative disc disease), lumbar Arthritis Emphysema, unspecified Lung nodules Family History Medical History Relation Name Comments Diabetes Brother Lung cancer Maternal Grandfather Hypertension Maternal Grandmother Stroke Maternal Grandmother AVM Mother Dementia Mother Lung cancer Mother's Brother Diabetes Son Relation Name Status Comments Brother Father Maternal Grandfather Maternal Grandmother Mother Mother's Brother Paternal Grandfather Paternal Grandmother Son Social History Tobacco Use Types Packs/Day Years Used Date Smoking Tobacco: Every Day Cigarettes Smokeless Tobacco: Never Tobacco Cessation:Ready to Q uit: Not Asked; Counseling Given: Not Answered Alcohol Use Standard Drinks/Week Comments Never 0 (1 standard drink = 0.6 oz pur e alcohol) PHQ-2 Answer Date Recorded PHQ-2 Total Score (If total score is 3 or more points, staff should administer the PHQ-9) 1 04/09/2025 PHQ-9 Answer Date Recorded PHQ-9 Total Score 8 08/13/2024 AUDIT-C Answer Date Recorded Q1: How often do you have a drink containing alcohol? Never 04/09/2025 Q2: How many drinks containi ng alcohol do you have on a typical day when you are drinking? Patient does not drink Q3: How often do you have si x or more drinks on one occasion? Never 04/09/2025 Comments No Sex and Gender Information Value Date Recorded Sex Assigned at Not on file Legal Sex Female 11:18 AM SUPERVISOR CONTING[employer] Gender Identity Not on file Sexual Orientation Not on file Last Filed Vital Signs Vital Sign Reading Time Taken Comments Blood Pressure 124/76 04/09/2025 9:58 AM CDT Pulse 86 04/09/2025 9:58 AM CDT Temperature 36.3 C (97.3 F) 04/09/2025 9:58 AM CDT Respiratory Rate 16 04/09/2025 9:58 AM CDT Oxygen Saturation 97% 04/09/2025 9:58 AM CDT Inhaled Oxygen Concentration - - Weight 70.3 kg (154 lb 14.4 oz) 04/09/2025 9:58 AM CDT Height 162.6 cm (5' 4) 04/09/2025 9:58 AM CDT Body Mass Index 26.59 04/09/2025 9:58 AM CDT Plan of Treatment Health Maintenance Due Date Last Done Comments Hepatitis B Screening 1968 Colon Cancer Screening-DNA Stool 01/16/2025 01/17/20 22 Covid-19 Vaccine (2024-2 6 season) 2025 12/03/2021, 06/04/2021, 05/14/2021 Breast Cancer Screening-Mammogram 05/09/2025 05/09/2024, 04/26/2023, 04/25/2022, Additional history exists Depression Screening 04/09/2026 04/09/2025, 08/13/2024, 08/13/2024, Additional history exists Fall Risk Assessment 04/09/2026 04/09/2025, 01/08/2025, 01/15/2024, Additional history exists Well Visit 65+ 04/09/2026 04/09/2025, 12/30, 01/15/2024, Additional history exists Osteoporosis Screening-Bone Density Scan 02/19/2027 02/19/2025, 01/25/2023, 01/25/2023, Additional history exists DTaP/Tdap/Td Vaccine (2 - Td or Tdap) 11/13/2031 11/12/2021 Hepatitis C Screening Completed 12/03/2020 Influenza Vaccine Discontinued Pneumococcal vaccine 65+ Discontinued Zoster Vaccine Discontinued Procedures Procedure Name Priority Date/Time Associated Diagnosis Comments DEXA AXIAL SKELETON BONE DENSITY 1 OR MORE SITES Schedule Routine, Read Routine (OP Routine) 02/19/2025 2:49 PM CDT Postmenopausal HM MAMMOGRAPHY Routine 05/09/2024 STOOL DNA COLOGUARD Routine 01/16/2022 10:45 AM CDT Colon cancer screening HEPATITIS C ANTIBODY Routine 12/03/2020 9:28 AM CDT from Last 3 Months or Most Recently Relevant to Health Maintenance Results * Dexa Axial Skeleton Bone Density 1 or 2 Site (02/19/2025 2:49 PM CDT) Anatomical Region Laterality Modality Body N/A Mammography 02/19/2025 10:4 2 PM CDT Narrative 02/19/2025 10:43 PM CDT EXAM DESCRIPTION: DEXA AXIAL SKELETON BONE DENSITY 1 OR MORE SITES REASON FOR STUDY: 75 y/o year old F with 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 CLINICAL INFORMATION: Current height: 64 inches Maximum height: 64 inches Weight: 154 pounds Risk factors: Postmenopausal, smoking history COMPARISON: 01/25/2023 FINDINGS: AP LUMBAR SPINE L1-L4: Total BMD is 1.026 g/cm2 T-score is -0.2 This is decreased in comparison to prior exam which is not statistically significant. LEFT HIP: Total BMD is 0.852 g/cm2 T-score is -0.7 This is decrease in comparison to prior exam which is not statistically significant. Femoral neck BMD is 0.773 g/cm2 T-score is -0.7 FRAX: FRAX not reported due to T-scores of hip, femoral neck and/or spine being at or above -1.0 (Normal). IMPRESSION: 1. Normal bone mass. REFERENCE: Bone mineral density: T-Score: Normal (T-score above or = -1.0) Low bone mass (T-score between -1.0 and -2.5) replaces the previously used term osteopenia Osteoporosis (T-score = or below -2.5) Z-Score: Within the expected range for age (Z-score above -2.0) Below the expected range for age (Z-score is -2.0 or below) Please see below follow up recommendations. Medical evaluation for secondary causes of low bone mineral density may be appropriate. FRAX is a World Health Organization validated fracture risk assessment tool that calculates a person's 10 year probability of a major osteoporosis related fracture and hip fracture. According to the National Osteoporosis Foundation guidelines, postmenopausal women and men age 50 or older with low bone mass and a 10 year probability of a major osteoporosis related fracture = or greater than 20% or a 10 year probability of a hip fracture = or greater than 3% should be considered for pharmacological treatment for the prevention of osteoporosis. For further information, including treatment recommendations, please refer to the 2019 ISCD Official Positions (http://www.iscd.org) and the NOF's Clinician's Guide to Prevention and Treatment of Osteoporosis (http://www.nof.org/professionals/clinical-guidelines) THIS IS AN ELECTRONICALLY VERIFIED FINAL REPORT 02/19/2025 10:43 PM - Electronically signed by Lenocio Betts M.D. 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 CLINICAL INFORMATION: Current height: 64 inches Maximum height: 64 inches Weight: 154 pounds Risk factors: Postmenopausal, smoking history COMPARISON: 01/25/2023 FINDINGS: AP LUMBAR SPINE L1-L4: Total BMD is 1.026 g/cm2 T-score is -0.2 This is decreased in comparison to prior exam which is not statistically significant. LEFT HIP: Total BMD is 0.852 g/cm2 T-score is -0.7 This is decrease in comparison to prior exam which is not statistically significant. Femoral neck BMD is 0.773 g/cm2 T-score is -0.7 FRAX: FRAX not reported due to T-scores of hip, femoral neck and/or spine beingat or above -1.0 (Normal). IMPRESSION: 1. Normal bone mass. REFERENCE: Bone mineral density: T-Score: Normal (T-score above or = -1.0) Low bone mass (T-score between -1.0 and -2.5) replaces thepreviously used term osteopenia Osteoporosis (T-score = or below -2.5) Z-Score: Within the expected range for age (Z-score above -2.0) Below the expected range for age (Z-score is -2.0 or below) Please see below follow up recommendations. Medical evaluation forsecondary causes of low bone mineral density may be appropriate. FRAX is a World Health Organization validated fracture risk assessmenttool that calculates a person's 10 year probability of a major osteoporosisrelated fracture and hip fracture. According to the National OsteoporosisFoundation guidelines, postmenopausal women and men age 50 or older with low bonemass and a 10 year probability of a major osteoporosis related fracture = or greater than 20% or a 10 year probability of a hip fracture = or greaterthan 3% should be considered for pharmacological treatment for the preventionof osteoporosis. For further information, including treatment recommendations, please referto the 2019 ISCD Official Positions (http://www.iscd.org) and the NOF's Clinician's Guide to Prevention and Treatment of Osteoporosis (http://www.nof.org/professionals/clinical-guidelines) THIS IS AN ELECTRONICALLY VERIFIED FINAL REPORT 02/19/2025 10:43 PM - Electronically signed by Leoncio Betts M.D. MF: [email or web address] Report ID: [id number] Reading Location: [place] [address] Guicho Brooks MD IMG DXA PROCEDURES Final Re sult * HM MAMMOGRAPHY (05/09/2024) Historical Provider HEALTH MAINTENANCE Final Result * Stool DNA - Cologuard (01/16/2022 10:45 AM CDT) Stool DNA - Cologuard Negative Negative [facility] (CLIA #:[id number]) Comment: NEGATIVE TEST RESULT. A negative Cologuard result indicates a low likelihood that a colorectal cancer (CRC) or advanced adenoma (adenomatous polyps with more advanced pre-malignant features) is present. The chance that a person with a negative Cologuard test has a colorectal cancer is less than 1 in 1500 (negative predictive value >99.9%) or has an advanced adenoma is less than 5.3% (negative predictive value 94.7%). These data are based on a prospective cross-sectional study of 10,000 individuals at average risk for colorectal cancer who were screened with both Cologuard and colonoscopy. (Cass Kapadia et al, N Engl J Med 2014;370(14):2174-2664) The normal value (reference range) for this assay is negative. COLOGUARD RE-SCREENING RECOMMENDATION: Periodic colorectal cancer screening is an important part of preventive healthcare for asymptomatic individuals at average risk for colorectal cancer. Following a negative Cologuard result, the [place] Cancer Society and U.S. Multi-Society Task Force screening guidelines recommend a Cologuard re-screening interval of 3 years. References: [place] [employer] Guideline for Colorectal Cancer Screening: https://www.cancer.org/cancer/gjquj-okkops-ookurs/lmxlicpoz-ktfjskhuj-ebkpzqc/ac s-rec ommendations.html.; Peter SHANNON, Leroy CR, Monica BowerK, Colorectal Cancer Screening: Recommendations for Physicians and Patients from the U.S. Multi-Society Task Force on Colorectal Cancer Screening , Am J Gastroenterology 2017; 112:2269-6399. TEST DESCRIPTION: Composite algorithmic analysis of stool DNA-biomarkers with hemoglobin immunoassay. Quantitative values of individual biomarkers are not reportable and are not associated with individual biomarker result reference ranges. Cologuard is intended for colorectal cancer screening of adults of either sex, 45 years or older, who are at average-risk for colorectal cancer (CRC). Cologuard has been approved for use by the U.S. FDA. The performance of Cologuard was established in a cross sectional study of average-risk adults aged 50-84. Cologuard performance in patients ages 45 to 49 years was estimated by sub-group analysis of near-age groups. Colonoscopies performed for a positive result may find as the most clinically significant lesion: colorectal cancer [4.0%], advanced adenoma (including sessile serrated polyps greater than or equal to 1cm diameter) [20%] or non- advanced adenoma [31%]; or no colorectal neoplasia [45%]. These estimates are derived from a prospective cross-sectional screening study of 10,000 individuals at average risk for colorectal cancer who were screened with both Cologuard and colonoscopy. (Cass Rondon al, N Engl J Med 2014;370(14):5377-7863.) Cologuard may produce a false negative or false positive result (no colorectal cancer or precancerous polyp present at colonoscopy follow up). A negative Cologuard test result does not guarantee the absence of CRC or advanced adenoma (pre-cancer). The current Cologuard screening interval is every 3 years. ([place] Cancer Society and U.S. Multi-Society Task Force). Cologuard performance data in a 10,000 patient pivotal study using colonoscopy as the reference method can be accessed at the following location: www.[employer].LicenseStream/results. Additional description of the Cologuard test process, warnings and precautions can be found at www.[employer].com. Stool 01/16/2022 10:4 5 AM CDT 01/17/2022 11:03 AM CDT us Madonna Evans MD LAB BODY FLUIDS AND STOOLS ORDERABLES Final Result [facility] (CLIA #:[id number]) [address] [place] [address] * Hepatitis C antibody (12/03/2020 9:28 AM CDT) Hep C Ab <0.1 0.0 - 0.9 s/co ratio [facility] - 01 Comment: Negative: < 0.8 Indeterminate: 0.8 - 0.9 Positive: > 0.9 The CDC recommends that a positive HCV antibody result be followed up with a HCV Nucleic Acid Amplification test (191961). 12/03/2020 9:28 AM CDT 12/03/2020 Narrative [facility] - 12/04/2020 10:08 AM CDT Performed at: - [facility] [id number] Bottoming Machine Operator: Jose J Tong PhD, Phone: [phone] us Madonna Evans MD LAB MICROBIOLOGY - GENERAL ORDERABLES Final Result Performing Organization Address [facility] de Phone Number [facility] - 01 from Last 3 Months or Most Recently Relevant to Health Maintenance Insurance [employer] Care Teams Superannuation Clerk Relationship Specialty Start Date End Date Guicho Brooks MD [address] [place] [address] PCP - General Internal Medicine 10/09/24
--- OUTSIDE RECORDS SUMMARY | 2025-05-11 14:30 | XMS_ITS | Clinical Summary ---
Author Organization [facility] Address [address] [place] [address] Care Team Providers Care Mains And Service Supervisor Name Role Phone Madonna Evans MD Primary Care Provider Allergies Active Allergy Reactions Criticality Noted Date Comments Cefprozil Rash Medium 07/27/2020 Erythromycin Rash Low 11/12/2021 Medications atorvastatin 10 MG tablet 10/20/2021 Active B Complex Vitamins Cap Take 1 capsule by mouth daily. Active Cholecalciferol 10 MCG (400 UNIT) Cap daily. Active LORazepam 1 MG tablet Take 1 tablet (1 mg total) by mouth every 8 (eight) hours as needed. 10/24/2021 Active losartan (COZAAR) 25 MG tablet Take 1 tablet (25 mg total) by mouth daily. 30 tablet 07/27/2023 Active Active Problems Problem Noted Date Diagnosed Date Nicotine dependence with current use 01/30/2024 Centrilobular emphysema 01/30/2024 Immunizations Immunization Administration Dates Next Due Tdap (Boostrix) 11/12/2021 Family History Medical History Relation Comments Diabetes Brother Stroke Maternal Grandfather Hypertension Maternal Grandmother Stroke Maternal Grandmother Relation Status Comments Brother Maternal Grandfather Maternal Grandmother Social History Tobacco Use Types Packs/Day Years Used Date Smoking Tobacco: Every Day Cigarettes 1 50 Smokeless Tobacco: Never Tobacco Cessation:Ready to Q uit: Not Asked; Counseling Given: Yes Alcohol Use Standard Drinks/Week Comments Not Currently 0 (1 standard drink = 0.6 oz pur e alcohol) PHQ-2 Answer Date Recorded Patient Health Questionnaire-2 Score 2 07/26/2023 Comments No Sex and Gender Information Value Date Recorded Sex Assigned at Not on file Legal Sex Female 2:12 PM CDT Gender Identity Not on file Sexual Orientation Not on file Last Filed Vital Signs Vital Sign Reading Time Taken Comments Blood Pressure 168/86 01/30/2024 8:59 AM CDT Pulse 89 01/30/2024 8:47 AM CDT Temperature 36.5 C (97.7 F) 01/30/2024 8:47 AM CDT Respiratory Rate 18 01/30/2024 8:47 AM CDT Oxygen Saturation 97% 01/30/2024 8:47 AM CDT RA Inhaled Oxygen Concentration - - Weight 66.7 kg (147 lb) 01/30/2024 8:47 AM CDT Height 162.6 cm (5' 4) 01/30/2024 8:47 AM CDT Body Mass Index 25.23 01/30/2024 8:47 AM CDT Plan of Treatment Health Maintenance Due Date Last Done Comments Colorectal Cancer Screening Colonoscopy (10 Years) 1950 Hepatitis C 1969 Pneumococcal Vaccine: 50+ Years (1 of 2 - PCV) 1970 Mammogram Screening 1991 Zoster Vaccines (1 of 2) 2001 RSV Immunization or 60+ Years (1 - Risk 60-74 years 1-dose series) 2011 Annual Medicare Wellness Visit 02/18/2016 PHQ-2 (Physician [place]) 07/02/2024 07/26/2023 COVID-19 Vaccine (3 - 2024-2 6 season) 2025 06/04/2021, 05/14/2021 Influenza Adult (#1) 2025 DTaP, Tdap and Td Vaccines ( 2 - Td or Tdap) 11/13/2031 11/12/2021 Dexa Scan (General) Completed 01/25/2023, 01/25/2023, 11/01/2020 Hepatitis A Vaccines Aged Out No long er eligible based on patient's age to complete this topic Meningococcal B Vaccine Aged Out No l onger eligible based on patient's age to complete this topic Meningococcal Vaccine Aged Out No marilia olivia eligible based on patient's age to complete this topic RSV Immunizations Under 20 Months Aged Out No longer eligible b ased on patient's age to complete this topic Insurance [employer] Care Teams Mains And Service Supervisor Relationship Specialty Start Date End Date Madonna Evans MD [address] [place] [address] PCP - General FAMILY PRACTICE 11/12/21
== END 2025-05-11 14:27 | disposition home or self-care (01) ==
LOC: ANHIMG 14:27
PROVIDERS: PCP Family Medicine; Visit Provider Internal Medicine
DX: Z12.31 Encounter for screening mammogram for malignant neoplasm of breast (principal)
CPT/HCPCS: 77063; 77067